=== PATIENT | female | born 1935 | race Caucasian/White ===

== ENCOUNTER 2023-11-03 08:09 | Emergency (ER) | payer MEDICARE, OTHER ==
[~2023-11-03] VITALS: Ht 162.6 cm; Wt 75.1 kg
[2023-11-03 08:12] VITALS: BP 164/70; PULSE 89; RESP 18; TEMP 97.9; O2SAT 98
[2023-11-03] MEDS ORDERED: NAPR-56 PO (09:42)
[2023-11-03] MEDS ORDERED: CYCL-1 PO (09:42)
== END 2023-11-03 10:04 | disposition home or self-care (01) ==
LOC: ER 08:09
DX: R07.81 Pleurodynia (principal); Z88.8 Allergy status to other drugs, medicaments and biological substances
CPT/HCPCS: 93005; 99283